=== PATIENT | male | born 1990 | race Caucasian/White ===

== ENCOUNTER 2025-08-07 14:06 | Outpatient (CLI) | payer OTHER | END 2025-08-07 14:07 | disposition home or self-care (01) | LOC: SCSMRI 14:06 | PROVIDERS: ATTEND Internal Medicine | DX: M51.16 Intervertebral disc disorders with radiculopathy, lumbar region (principal); M47.22 Other spondylosis with radiculopathy, cervical region; Q05.7 Lumbar spina bifida without hydrocephalus | CPT/HCPCS: 72141; 72148 ==